=== PATIENT | male | born 1950 | race Caucasian/White ===

== ENCOUNTER 2021-02-08 11:50 | Emergency (ER) | payer OTHER, MEDICARE ==
[2021-02-08] MEDS ORDERED: Ondansetron 4 MG Tab.DIS PO STA (12:29)
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
[2021-02-08 12:36] VITALS: BP 149/99; PULSE 69
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
== END 2021-02-08 13:00 | disposition home or self-care (01) ==
LOC: FB.ED 11:50
DX: S43.401A Unspecified sprain of right shoulder joint, initial encounter (principal); V53.5XXA Driver of pick-up truck or van injured in collision with car, pick-up truck or van in traffic accident, initial encounter
CPT/HCPCS: 36415; 73030; 80053; 85025; 85610; 85730; 99284; A9270

== ENCOUNTER 2021-07-28 07:07 | Day surgery (SDC) | payer MEDICARE, OTHER ==
[2021-07-28] MEDS ORDERED: Propofol 200 MG/20 ML SDV IV ONE (07:08)
[2021-07-28] MEDS ORDERED: Sodium Chloride 0.9% 10 ML Syringe FLUSH PRN (08:15)
[2021-07-28] MEDS ORDERED: Lactated Ringers 1,000 ML IV SCH (08:15)
[2021-07-28 10:07] VITALS: BP 132/84; PULSE 66
== END 2021-07-28 09:52 | disposition home or self-care (01) ==
LOC: FB.SDS 07:07
PROVIDERS: ATTEND Surgery
DX: D12.6 Benign neoplasm of colon, unspecified (principal); K64.1 Second degree hemorrhoids; Z79.899 Other long term (current) drug therapy; M10.9 Gout, unspecified
CPT/HCPCS: 00811-QZ; 88305; J2704; J7120